=== PATIENT | male | born 1935 | race Caucasian/White ===

== ENCOUNTER 2021-03-07 09:37 | Day surgery (SDC) | payer MEDICARE ==
[2021-03-04 12:25] VITALS: BMI 26.2
[~2021-03-07 09:37] MED LIST: LACTATED RINGERS 1,000 ML IV SCH; LIDOCAINE 1% (10MG/ML) FOR IV START INTRADERMA PRN
[2021-03-07 10:00] VITALS: TEMP 97
[2021-03-07] MEDS ORDERED: LIDOCAINE 1% INJ 10MG/ML (20 ML MDV) ONE (10:47)
[2021-03-07] MEDS ORDERED: PROPOFOL 10 MG/ML 20 ML VIAL IV ONE (10:47)
--- NOTE | 2021-03-07 10:56 | P.PCN ---
Date of Procedure: 03/07/21 Procedure(s) Performed: BRIEF HISTORY: Patient is a 85-year-old, pleasant, male scheduled for an upper endoscopy as a part of evaluation of melena of 1 week duration.. PROCEDURE PERFORMED: Esophagogastroduodenoscopy with biopsy. PREOPERATIVE DIAGNOSIS: Melena of 1 week duration IV sedation per anesthesia. PROCEDURE: After informed consent was obtained, the patient was brought into the endoscopy unit. IV sedation was administered by Anesthesia under continuous monitoring. Initially the Olympus GIF-140 video endoscope was inserted into the mouth. Esophagus intubated without any difficulty. It was gradually advanced into the stomach and duodenum and carefully examined. The bulb and the second p art of the duodenum appeared normal. The scope at this time was withdrawn to the stomach, adequately insufflated with air, and upon careful examination, mucosa of the antrum, had a 1 cm clean-based antral ulcer with no active bleeding. Also there were scattered erosions and antral erosive biopsied. The body, cardia and the fundus appeared normal. The scope was then withdrawn into the esophagus. The GE junction was located at 41 cm from the incisors. Small hiatal hernia noted. The esophagus appeared normal. There were no erosions or ulcerations seen and the patient tolerated the procedure well. IMPRESSION: 1. 1 cm clean-based antral ulcer with no active bleeding. 2. Antral erosive gastritis. RECOMMENDATIONS: The findings of this examination were discussed with the patient as well as his family. He was advised to follow with the biopsy results. In the meantime he'll be started on Prilosec 20 mg daily for 3 months. He was advised to avoid NSAIDs..
[2021-03-07 11:06] VITALS: BP 115/64; PULSE 53; RESP 16
== END 2021-03-07 11:45 | disposition home or self-care (01) ==
LOC: ORWHC2ENDO 09:37
PROVIDERS: ATTEND Internal Medicine Gastroenterology
DX: K25.4 Chronic or unspecified gastric ulcer with hemorrhage (principal); K44.9 Diaphragmatic hernia without obstruction or gangrene; I10 Essential (primary) hypertension; Z79.899 Other long term (current) drug therapy
CPT/HCPCS: 88305; 88342; 43239; J2001; J2704

== ENCOUNTER 2023-02-06 22:03 | Emergency (ER) | payer MEDICARE ==
[2023-02-06 22:08] VITALS: TEMP 97.8
[2023-02-06 22:56] LABS: Basophils % (A) 1 %; Eosinophils # (A) 0.1 k/uL (0-0.7); Eosinophils % (A) 2 %; HCT 41.3 % (39.0-53.0); HGB 14.6 gm/dL (13.0-17.5); Lymphocytes # (A) 0.9 k/uL (1.0-4.8); Lymphocytes % (A) 20 %; MCH 30.6 pg (25.0-35.0); MCHC 35.3 g/dL (31.0-37.0); MCV 86.6 fL (80.0-100.0); Mean Platelet Volume 8.2; Monocytes # (A) 0.3 k/uL (0-1.0); Monocytes % (A) 7 %; Neutrophils # (A) 3.1 k/uL (1.3-7.7); Neutrophils % (A) 68 %; Platelet Count 167 k/uL (150-450); RBC 4.77 m/uL (4.30-5.90); RDW 13.2 % (11.5-15.5); WBC 4.5 k/uL (3.8-10.6)
[2023-02-06 23:10] LABS: Chloride 95 mmol/L (98-107)
[2023-02-06 23:11] LABS: ALT 28 U/L (4-49); AST 25 U/L (17-59); African American GFR (CKD) 88 (>60 ml/min/1.73 sqM); Albumin 4.3 g/dL (3.5-5.0); Alkaline Phosphatase 91 U/L (38-126); Anion Gap 8 mmol/L; Blood Urea Nitrogen 29 mg/dL (9-20); Calcium 9.1 mg/dL (8.4-10.2); Carbon Dioxide 29 mmol/L (22-30); Glucose 153 mg/dL (74-99); Magnesium 1.8 mg/dL (1.6-2.3); Non-African American GFR(CKD) 76 (>60 ml/min/1.73 sqM); Sodium 132 mmol/L (137-145); Total Bilirubin 0.8 mg/dL (0.2-1.3); Total Protein 7.5 g/dL (6.3-8.2)
[2023-02-06 23:15] LABS: Potassium 3.7 mmol/L (3.5-5.1)
--- NOTE | 2023-02-06 23:20 | ED ---
SOB HPI - General Source: patient Mode of arrival: ambulatory Limitations: no limitations <Laurie Payne - Last Filed: 02/07/23 00:16> <Brett Feliz - Last Filed: 02/07/23 02:09> - General Chief Complaint: Shortness of Breath Stated Complaint: sob Time Seen by Provider: 02/06/23 22:16 - History of Present Illness Initial Comments: Patient is an 79-year-old male with history of hypertension presenting with chief complaint of shortness of breath. Patient has noted increased shortness of breath with exertion over the last 2 days. He also admits to increased generalized weakness. He denies any chest pain or palpitations. No nausea or vomiting. Patient states that he had some epigastric discomfort but has not had it today. No fevers or chills. No cough, congestion, sore throat. Patient normally has a slight amount of lower extremity edema, states that this is not changed from usual baseline. (Laurie Payne) - Related Data Home Medications Medication Instructions Recorded Confirmed Arginine [l-Arginine] 500 mg PO DAILY 03/04/21 03/04/21 Ascorbic Acid [Vitamin C] 1,000 mg PO DAILY 03/04/21 03/04/21 Citrulline 1 tab PO DAILY 03/04/21 03/07/21 Curcumin 1 tab PO DAILY 03/04/21 03/07/21 Doxazosin [Cardura] 4 mg PO HS 03/04/21 03/04/21 Finasteride [Proscar] 5 mg PO HS 03/04/21 03/04/21 Furosemide [Lasix] 40 mg PO DAILY 03/04/21 03/04/21 Grapeseed Extract 1 tab PO DAILY 03/04/21 03/07/21 Krill Oil 500 mg PO DAILY 03/04/21 03/04/21 Magnesium 200 mg PO DAILY 03/04/21 03/04/21 Selenium 50 mcg PO DAILY 03/04/21 03/04/21 Ubidecarenone [Co Q-10] 100 mg PO DAILY 03/04/21 03/04/21 Vitamin B Complex 1 each PO DAILY 03/04/21 03/04/21 amLODIPine BESYLATE 10 mg PO HS 03/04/21 03/04/21 cloNIDine 0.3 MG/24HR PATCH 1 each TRANSDERM Q7D 03/04/21 03/07/21 [Catapres-Tts 0.3MG Patch] hydroCHLOROthiazide [Hydrodiuril] 25 mg PO DAILY 03/04/21 03/07/21 Allergies Allergy/AdvReac Type Severity Reaction Status Date / Time No Known Allergies Allergy Verified 02/06/23 22:08 Review of Systems ROS Other: All systems not noted in ROS Statement are negative. <Laurie Payne - Last Filed: 02/07/23 00:16> ROS Other: All systems not noted in ROS Statement are negative. <TriniBrett - Last Filed: 02/07/23 02:09> ROS Statement: Those systems with pertinent positive or pertinent negative responses have been documented in the HPI. Past Medical History Past Medical History: Hypertension, Prostate Disorder Additional Past Medical History / Comment(s): recent hx. black stool, COVID x 2 History of Any Multi-Drug Resistant Organisms: None Reported Past Surgical History: Hernia Repair Additional Past Surgical History / Comment(s): inguinal hernia repair x2, umbilical hernia repair, cataracts removed Past Anesthesia/Blood Transfusion Reactions: No Reported Reaction Past Psychological History: No Psychological Hx Reported Smoking Status: Former smoker Past Alcohol Use History: None Reported Past Drug Use History: None Reported <Laurei Payne - Last Filed: 02/07/23 00:16> General Exam Limitations: no limitations General appearance: alert, in no apparent distress Head exam: Present: atraumatic, normocephalic, normal inspection Eye exam: Present: normal appearance Neck exam: Present: normal inspection, full ROM Respiratory exam: Present: normal lung sounds bilaterally. Absent: respiratory distress, wheezes, rales, rhonchi, stridor Cardiovascular Exam: Present: regular rate, normal rhythm, normal heart sounds. Absent: systolic murmur, diastolic murmur, rubs, gallop, clicks Extremities exam: Present: pedal edema Neurological exam: Present: alert, oriented X3, CN II-XII intact Psychiatric exam: Present: normal affect, normal mood Skin exam: Present: warm, dry, intact, normal color. Absent: rash <Laurie Payne - Last Filed: 02/07/23 00:16> Course Vital Signs 02/06/23 02/06/23 02/07/23 22:04 22:49 01:46 Temperature 97.8 F Pulse Rate 83 55 L 52 L Respiratory 20 18 16 Rate Blood Pressure 185/80 147/71 136/82 O2 Sat by Pulse 95 94 L 95 Oximetry Medical Decision Making - Lab Data Result diagrams: 02/06/23 22:25 02/06/23 22:25 - EKG Data -: EKG Interpreted by Me <ElmerLeonciomauricio - Last Filed: 02/07/23 00:16> - Lab Data Result diagrams: 02/06/23 22:25 02/06/23 22:25 <Brett Feliz Emilio - Last Filed: 02/07/23 02:09> - Medical Decision Making Was pt. sent in by a medical professional or institution (, PA, SECURITY MANAGER, urgent care, hospital, or snf...) When possible be specific @ -[No] Did you speak to anyone other than the patient for history (EMS, parent, family, police, friend...)? What history was obtained from this source @ -[No] Did you review nursing and triage notes (agree or disagree)? Why? @ -[I reviewed and agree with nursing and triage notes] Were old charts reviewed (outside hosp., previous admission, EMS record, old EKG, old radiological studies, urgent care reports/EKG's, snf records)? Report findings @ -[No old charts were reviewed] Differential Diagnosis (chest pain, altered mental status, abdominal pain women, abdominal pain men, vaginal bleeding, weakness, fever, dyspnea, syncope, headache, dizziness, GI bleed, back pain, seizure, CVA, palpatations, mental health, musculoskeletal)? @ -MDM Differential Dyspnea: Coronary syndrome, arrhythmia, tamponade, asthma, COPD, pulmonary embolism, pneumonia, pneumothorax, pulmonary effusion, anaphylaxis, diabetic ketoacidosis, flailed chest, pulmonary contusion, diaphragmatic rupture, anemia, neuromuscular this is not meant to be an all-inclusive list. EKG interpreted by me (3pts min.). @ -[As above] X-rays interpreted by me (1pt min.). @ -Chest x-ray shows no acute cardiopulmonary disease CT interpreted by me (1pt min.). @ -[None done] U/S interpreted by me (1pt. min.). @ -[None done] What testing was considered but not performed or refused? (CT, X-rays, U/S, labs)? Why? @ -[None] What meds were considered but not given or refused? Why? @ -[None] Did you discuss the management of the patient with other professionals (professionals i.e. , PA, SECURITY MANAGER, lab, RT, psych nurse, 7th grade social studies teacher, medical research associate, teacher, enforcement officer, geriatric case manager)? Give summary @ -[No] Was smoking cessation discussed for >3mins.? @ -[No] Was critical care preformed (if so, how long)? @ -[No] Were there social determinants of health that impacted care today? How? (Homelessness, low income, unemployed, alcoholism, drug addiction, transportation, low edu. Level, literacy, decrease access to med. care, skilled nursing, rehab)? @ -[No] Was there de-escalation of care discussed even if they declined (Discuss DNR or withdrawal of care, Hospice)? DNR status @ -[No] What co-morbidities impacted this encounter? (DM, HTN, Smoking, COPD, CAD, Cancer, CVA, ARF, Chemo, Hep., AIDS, mental health diagnosis, sleep apnea, morbid obesity)? @ -Hypertension Was patient admitted / discharged? Hospital course, mention meds given and route, prescriptions, significant lab abnormalities, going to OR and other pertinent info. @ -Patient is an 87-year-old male presenting with chief complaint of progressive shortness of breath on exertion that's been worsening over the last 2 days. On physical examination heart and lungs are clear to auscultation. Lab work shows no leukocytosis or anemia. CMP shows sodium 132. BUN 29. Glucose 153. Troponin is less than 0.012 and BNP is 158. TSH is WNL. Urine shows no sign of infectious process or bleeding. Chest x-ray shows no acute process. Patient is signed out to my attending Dr. Feliz for further management and disposition (Laurie Payne) Patient evaluated, sinus bradycardia with stable blood pressure, normal oxygenation, no dyspnea or respiratory distress. Patient has normal CBC, normal CMP, clear chest x-ray, negative d-dimer, negative troponin, negative BNP. Will follow-up with cardiology. Will return with worsening or changing symptoms. (Brett Feliz) - Lab Data Lab Results 02/06/23 02/06/23 02/06/23 Range/Units 22:25 22:25 22:25 WBC 4.5 (3.8-10.6) k/uL RBC 4.77 (4.30-5.90) m/uL Hgb 14.6 (13.0-17.5) gm/dL Hct 41.3 (39.0-53.0) % MCV 86.6 (80.0-100.0) fL MCH 30.6 (25.0-35.0) pg MCHC 35.3 (31.0-37.0) g/dL RDW 13.2 (11.5-15.5) % Plt Count 167 (150-450) k/uL MPV 8.2 Neutrophils % 68 % Lymphocytes % 20 % Monocytes % 7 % Eosinophils % 2 % Basophils % 1 % Neutrophils # 3.1 (1.3-7.7) k/uL Lymphocytes # 0.9 L (1.0-4.8) k/uL Monocytes # 0.3 (0-1.0) k/uL Eosinophils # 0.1 (0-0.7) k/uL Basophils # 0.0 (0-0.2) k/uL D-Dimer (<0.60) mg/L FEU Sodium 132 L (137-145) mmol/L Potassium 3.7 (3.5-5.1) mmol/L Chloride 95 L (98-107) mmol/L Carbon Dioxide 29 (22-30) mmol/L Anion Gap 8 mmol/L BUN 29 H (9-20) mg/dL Creatinine 0.90 (0.66-1.25) mg/dL Est GFR (CKD-EPI)AfAm 88 (>60 ml/min/1.73 sqM) Est GFR (CKD-EPI)NonAf 76 (>60 ml/min/1.73 sqM) Glucose 153 H (74-99) mg/dL Plasma Lactic Acid Jerson 1.5 (0.7-2.0) mmol/L Calcium 9.1 (8.4-10.2) mg/dL Magnesium 1.8 (1.6-2.3) mg/dL Total Bilirubin 0.8 (0.2-1.3) mg/dL AST 25 (17-59) U/L ALT 28 (4-49) U/L Alkaline Phosphatase 91 (38-126) U/L Troponin I (0.000-0.034) ng/mL NT-Pro-B Natriuret Pep pg/mL Total Protein 7.5 (6.3-8.2) g/dL Albumin 4.3 (3.5-5.0) g/dL TSH 1.860 (0.465-4.680) mIU/L Urine Color Urine Appearance (Clear) Urine pH (5.0-8.0) Ur Specific [place] (1.001-1.035) Urine Protein (Negative) Urine Glucose (UA) (Negative) Urine Ketones (Negative) Urine Blood (Negative) Urine Nitrite (Negative) Urine Bilirubin (Negative) Urine Urobilinogen (<2.0) mg/dL Ur Leukocyte Esterase (Negative) Influenza Type A (PCR) (Not Detectd) Influenza Type B (PCR) (Not Detectd) RSV (PCR) (Not Detectd) SARS-CoV-2 (PCR) (Not Detectd) 02/06/23 02/06/23 02/06/23 Range/Units 22:25 22:25 22:25 WBC (3.8-10.6) k/uL RBC (4.30-5.90) m/uL Hgb (13.0-17.5) gm/dL Hct (39.0-53.0) % MCV (80.0-100.0) fL MCH (25.0-35.0) pg MCHC (31.0-37.0) g/dL RDW (11.5-15.5) % Plt Count (150-450) k/uL MPV Neutrophils % % Lymphocytes % % Monocytes % % Eosinophils % % Basophils % % Neutrophils # (1.3-7.7) k/uL Lymphocytes # (1.0-4.8) k/uL Monocytes # (0-1.0) k/uL Eosinophils # (0-0.7) k/uL Basophils # (0-0.2) k/uL D-Dimer 0.66 H (<0.60) mg/L FEU Sodium (137-145) mmol/L Potassium (3.5-5.1) mmol/L Chloride (98-107) mmol/L Carbon Dioxide (22-30) mmol/L Anion Gap mmol/L BUN (9-20) mg/dL Creatinine (0.66-1.25) mg/dL Est GFR (CKD-EPI)AfAm (>60 ml/min/1.73 sqM) Est GFR (CKD-EPI)NonAf (>60 ml/min/1.73 sqM) Glucose (74-99) mg/dL Plasma Lactic Acid Jerson (0.7-2.0) mmol/L Calcium (8.4-10.2) mg/dL Magnesium (1.6-2.3) mg/dL Total Bilirubin (0.2-1.3) mg/dL AST (17-59) U/L ALT (4-49) U/L Alkaline Phosphatase (38-126) U/L Troponin I <0.012 (0.000-0.034) ng/mL NT-Pro-B Natriuret Pep 158 pg/mL Total Protein (6.3-8.2) g/dL Albumin (3.5-5.0) g/dL TSH (0.465-4.680) mIU/L Urine Color Urine Appearance (Clear) Urine pH (5.0-8.0) Ur Specific [place] (1.001-1.035) Urine Protein (Negative) Urine Glucose (UA) (Negative) Urine Ketones (Negative) Urine Blood (Negative) Urine Nitrite (Negative) Urine Bilirubin (Negative) Urine Urobilinogen (<2.0) mg/dL Ur Leukocyte Esterase (Negative) Influenza Type A (PCR) (Not Detectd) Influenza Type B (PCR) (Not Detectd) RSV (PCR) (Not Detectd) SARS-CoV-2 (PCR) (Not Detectd) 02/06/23 02/06/23 Range/Units 23:46 23:49 WBC (3.8-10.6) k/uL RBC (4.30-5.90) m/uL Hgb (13.0-17.5) gm/dL Hct (39.0-53.0) % MCV (80.0-100.0) fL MCH (25.0-35.0) pg MCHC (31.0-37.0) g/dL RDW (11.5-15.5) % Plt Count (150-450) k/uL MPV Neutrophils % % Lymphocytes % % Monocytes % % Eosinophils % % Basophils % % Neutrophils # (1.3-7.7) k/uL Lymphocytes # (1.0-4.8) k/uL Monocytes # (0-1.0) k/uL Eosinophils # (0-0.7) k/uL Basophils # (0-0.2) k/uL D-Dimer (<0.60) mg/L FEU Sodium (137-145) mmol/L Potassium (3.5-5.1) mmol/L Chloride (98-107) mmol/L Carbon Dioxide (22-30) mmol/L Anion Gap mmol/L BUN (9-20) mg/dL Creatinine (0.66-1.25) mg/dL Est GFR (CKD-EPI)AfAm (>60 ml/min/1.73 sqM) Est GFR (CKD-EPI)NonAf (>60 ml/min/1.73 sqM) Glucose (74-99) mg/dL Plasma Lactic Acid Jerson (0.7-2.0) mmol/L Calcium (8.4-10.2) mg/dL Magnesium (1.6-2.3) mg/dL Total Bilirubin (0.2-1.3) mg/dL AST (17-59) U/L ALT (4-49) U/L Alkaline Phosphatase (38-126) U/L Troponin I (0.000-0.034) ng/mL NT-Pro-B Natriuret Pep pg/mL Total Protein (6.3-8.2) g/dL Albumin (3.5-5.0) g/dL TSH (0.465-4.680) mIU/L Urine Color Light Yellow Urine Appearance Clear (Clear) Urine pH 7.5 (5.0-8.0) Ur Specific [place] 1.010 (1.001-1.035) Urine Protein Trace H (Negative) Urine Glucose (UA) Negative (Negative) Urine Ketones Negative (Negative) Urine Blood Negative (Negative) Urine Nitrite Negative (Negative) Urine Bilirubin Negative (Negative) Urine Urobilinogen <2.0 (<2.0) mg/dL Ur Leukocyte Esterase Negative (Negative) Influenza Type A (PCR) Not Detected (Not Detectd) Influenza Type B (PCR) Not Detected (Not Detectd) RSV (PCR) Not Detected (Not Detectd) SARS-CoV-2 (PCR) Not Detected (Not Detectd) - EKG Data EKG Comments: Sinus rhythm with sinus arrhythmia. Ventricular rate 69. QRS 97. QT 399. QTc 418. (Luarie Payne) Disposition <Laurie Payne - Last Filed: 02/07/23 00:16> Is patient prescribed a controlled substance at d/c from ED?: No Time of Disposition: 02:05 <Brett Feliz - Last Filed: 02/07/23 02:09> Clinical Impression: Dyspnea Disposition: HOME SELF-CARE Condition: Good Instructions (If sedation given, give patient instructions): Dyspnea (ED) Referrals: Peterson Alva MD [Primary Care Provider] - 1-2 days
--- NOTE | 2023-02-06 23:22 | XR ---
EXAMINATION TYPE: XR chest 2V DATE OF EXAM: 02/06/2023 COMPARISON: NONE HISTORY: Short of breath TECHNIQUE: 2 views FINDINGS: There is no heart failure nor confluent pneumonic infiltrate. Costophrenic angles are clear . There are chest leads. No pleural effusion. The bony thorax is intact. IMPRESSION: No active cardiopulmonary disease.
[2023-02-07 00:05] LABS: Appearance,Urine Clear (Clear); Bilirubin,Urine Negative (Negative); Blood,Urine Negative (Negative); Color,Urine Light Yellow; Glucose,Urine (UA) Negative (Negative); Ketones,Urine Negative (Negative); Leukocyte Esterase,Urine Negative (Negative); Nitrite,Urine Negative (Negative); PH, Urine 7.5 (5.0-8.0); Protein,Urine Trace (Negative); Urobilinogen,Urine <2.0 mg/dL (<2.0)
[2023-02-07 01:47] VITALS: BP 136/82; PULSE 52; RESP 16
== END 2023-02-07 02:24 | disposition home or self-care (01) ==
LOC: EC 22:03
DX: R06.00 Dyspnea, unspecified (principal); I10 Essential (primary) hypertension; Z20.822 Contact with and (suspected) exposure to COVID-19; Z87.891 Personal history of nicotine dependence; Z79.82 Long term (current) use of aspirin; Z79.899 Other long term (current) drug therapy
CPT/HCPCS: 36415; 71046; 80053; 81003; 83605; 83735; 83880; 84443; 84484; 85025; 85379; 87636; 93005; 99285

== ENCOUNTER → 2024-08-08 | Outpatient (CLI) | payer MEDICARE ==
--- NOTE | 2024-08-08 15:45 | MR ---
EXAMINATION TYPE: MR lumbar spine wo con DATE OF EXAM: 08/08/2024 COMPARISON: None HISTORY: Lower back and bilateral hip pain. CONTRAST: 0 mL intravenous Gadavist. TECHNIQUE: Multiplanar, multisequence images of the lumbar spine were acquired. FINDINGS: Cord terminates at the L1 level. There is some heterogeneity diffusely through the lumbar vertebral bodies which may be related to red marrow conversion. L5-S1: Disc height is preserved. Disc desiccation is present. Small left paracentral disc herniation is present. Facet hypertrophy and ligamentum flavum laxity is present. Neural foramen are patent L4-L5: Facet hypertrophy and ligamentum flavum laxity contributing to spinal canal stenosis. There is broad-based disc bulge with moderate anterior thecal sac flattening and severe left and moderate rig ht foraminal narrowing is present L3-L4: No significant disc bulge or disc herniation. No spinal canal stenosis. Some facet hypertrop hy and ligamentum flavum laxity is present. There is mild to moderate foraminal narrowing.. L2-L3: A based disc bulges anterior thecal sac flattening. No AP spinal canal stenosis neural forame n are patent. L1-L2: No focal disc herniation is evident. There is narrowing of disc height. Mild facet hypertrophy and ligamentum flavum laxity is present. Mild right foraminal narrowing present T12-L1: No significant disc bulge or disc herniation. No spinal canal stenosis. No foraminal stenos is. Facet hypertrophy is present with right posterior lateral thecal sac compression. IMPRESSION: 1. Multilevel degenerative disc changes with narrowing of the disc height. 2. Disc bulging and facet hypertrophy and ligamentum flavum laxity are contributing to spinal canal s tenosis L4-5. There is severe left and moderate right foraminal narrowing. 3. Mild to moderate foraminal narrowing bilaterally at L3-4 facet hypertrophy is present. [facility], , 08/08/2024 3:43 PM
== END | disposition home or self-care (01) ==
LOC: RADMRIMAIN 11:34
PROVIDERS: ATTEND Physical Medicine & Rehabilitation
DX: M54.51 Vertebrogenic low back pain
CPT/HCPCS: 72148